=== PATIENT | male | born 1945 | race African-American/Black ===

== ENCOUNTER 2019-08-17 15:06 | Emergency (ER) | payer MEDICARE, OTHER ==
[2019-08-17 15:11] VITALS: BP 163/81
--- NOTE | 2019-08-17 15:15 | ER Document Report ---
ED Medical Screen (RME) - General Chief Complaint: Groin Pain Stated Complaint: ABDOMINAL PAIN Time Seen by Provider: 08/17/19 15:12 Mode of Arrival: Ambulatory Information source: Patient Notes: 74-year-old male presents to ED for groin pain and swelling on the right side. He states he had about a month ago went to an urgent care and they did a scan is that they could not find anything. He states it is come back again and is now larger. He states the pain started Friday this time. He said it does not affect his urination he is not having any pain or blood in his urine. He states he he is having more frequent bowel movement since this is become more swollen. He says he has not been lifting anything since he has noticed this. History of diabetes high blood pressure cardiac stent he states he normally does have frequent urination. He states he does not smoke drink or use any drugs. I have greeted and performed a rapid initial assessment of this patient. A comprehensive ED assessment and evaluation of the patient, analysis of test results and completion of medical decision making process will be conducted by an additional ED providers. Physical Exam - Vital signs Vitals: Temp Pulse Resp BP Pulse Ox 97.6 F 79 17 163/81 H 100 08/17/19 15:10 08/17/19 15:10 08/17/19 15:10 08/17/19 15:10 08/17/19 15:10 Course - Vital Signs Vital signs: Temp Pulse Resp BP Pulse Ox 97.6 F 79 17 163/81 H 100 08/17/19 15:10 08/17/19 15:10 08/17/19 15:10 08/17/19 15:10 08/17/19 15:10
[2019-08-17 15:42] LABS: ABSOLUTE EOSINOPHILS # (AUTO) 0.1 10^3/uL (0.0-0.6); ABSOLUTE LYMPHOCYTES (AUTO) 0.9 10^3/uL (0.5-4.7); ABSOLUTE MONOCYTES (AUTO) 0.6 10^3/uL (0.1-1.4); ABSOLUTE NEUT (AUTO) 3.8 10^3/uL (1.7-8.2); BASOPHILS % (AUTO) 0.7 % (0-2); HEMATOCRIT 38.9 % (37.9-51.0); HEMOGLOBIN 13.2 g/dL (13.5-17.0); LYMPHOCYTES % (AUTO) 16.4 % (13-45); MEAN CORPUSCULAR HEMOGLOBIN 31.4 pg (27.0-33.4); MEAN CORPUSCULAR VOLUME 92 fl (80-97); MONOCYTES % (AUTO) 11.2 % (3-13); PLATELET COUNT 200 10^3/uL (150-450); RED BLOOD COUNT 4.21 10^6/uL (4.35-5.55); RED CELL DISTRIBUTION WIDTH 11.9 % (11.5-14.0); SEGMENTED NEUTROPHILS % (AUTO) 69.7 % (42-78); TOTAL CELLS COUNTED % (AUTO) 100 %; WHITE BLOOD COUNT 5.4 10^3/uL (4.0-10.5)
[2019-08-17 15:45] LABS: APPEARANCE,URINE CLEAR; BILIRUBIN,URINE NEGATIVE (NEGATIVE); COLOR,URINE YELLOW; GLUCOSE, URINE >=500 mg/dL (NEGATIVE); KETONES,URINE NEGATIVE (NEGATIVE); PROTEIN,URINE NEGATIVE (NEGATIVE); URINE SPECIFIC GRAVITY 1.018; UROBILINOGEN,URINE NEGATIVE mg/dL (<2.0)
[2019-08-17 16:03] LABS: ALBUMIN 4.3 g/dL (3.5-5.0); ALKALINE PHOSPHATASE 88 U/L (38-126); ANION GAP 11 (5-19); ASPARTATE AMINO TRANSFERASE 26 U/L (17-59); BILIRUBIN,DIRECT 0.1 mg/dL (0.0-0.4); BILIRUBIN,TOTAL 0.6 mg/dL (0.2-1.3); BLOOD UREA NITROGEN 12 mg/dL (7-20); CALCIUM 10.1 mg/dL (8.4-10.2); CARBON DIOXIDE 31 mmol/L (22-30); CHLORIDE 97 mmol/L (98-107); GLUCOSE 300 mg/dL (75-110); POTASSIUM 4.2 mmol/L (3.6-5.0); TOTAL PROTEIN 7.6 g/dL (6.3-8.2)
--- NOTE | 2019-08-17 17:01 | ER Document Report ---
ED General - General Chief Complaint: Groin Pain Stated Complaint: ABDOMINAL PAIN Time Seen by Provider: 08/17/19 15:12 Primary Care Provider: RUMA JARRETT MD [Primary Care Provider] - Follow up as needed Mode of Arrival: Ambulatory Notes: 74-year-old male presents with right testicular pain/swelling since Friday. Patient states it is intermittent, worse with standing, nothing relieves it. Patient states he had similar episode approximately 1 month ago and had a CT scan at urgent care which did not show anything. Patient denies dysuria, hematuria, changes with frequency in urine. States he has frequency with urination for the past 5 years and has seen urologist multiple times for same without a clear answer. Denies fevers, chills, nausea, vomiting, diarrhea, constipation, abdominal pain, chest pain, dyspnea, or dizziness. Patient denies history of CHF. TRAVEL OUTSIDE OF THE [place] IN LAST 30 DAYS: No - Related Data Allergies/Adverse Reactions: No Known Allergies Allergy (Verified 08/17/19 15:13) Past Medical History - General Information source: Patient - Social History Smoking Status: Never Smoker Chew tobacco use (# tins/day): No Frequency of alcohol use: None Drug Abuse: None Family History: Reviewed & Not Pertinent Patient has suicidal ideation: No Patient has homicidal ideation: No - Past Medical History Cardiac Medical History: Reports: Hx Hypertension Pulmonary Medical History: Reports: Hx Asthma Endocrine Medical History: Reports: Hx Diabetes Mellitus Type 2 Past Surgical History: Reports: Hx Cardiac Catheterization - Stent, Hx Testicular Surgery Review of Systems - Review of Systems Notes: Constitutional: Negative for fever. HENT: Negative for sore throat. Eyes: Negative for visual changes. Cardiovascular: Negative for chest pain. Respiratory: Negative for shortness of breath. Gastrointestinal: Negative for abdominal pain, vomiting or diarrhea. Genitourinary: Positive for right testicular pain/swelling. Negative for dysuria. Musculoskeletal: Negative for back pain. Skin: Negative for rash. Neurological: Negative for headaches, weakness or numbness. 10 point ROS negative except as marked above and in HPI. Physical Exam - Vital signs Vitals: Temp Pulse Resp BP Pulse Ox 97.6 F 79 17 163/81 H 100 08/17/19 15:10 08/17/19 15:10 08/17/19 15:10 08/17/19 15:10 08/17/19 15:10 - Notes Notes: GENERAL: Well-appearing, well-nourished and in no acute distress. HEAD: Atraumatic, normocephalic. EYES: Pupils equal round and reactive to light, extraocular movements intact, sclera anicteric, conjunctiva are normal. ENT: TMs normal, nares patent, oropharynx clear without exudates. Moist mucous membranes. NECK: Normal range of motion, supple without lymphadenopathy or JVD. LUNGS: Breath sounds clear to auscultation bilaterally and equal. No wheezes rales or rhonchi. HEART: Regular rate and rhythm without murmurs, rubs or gallops. ABDOMEN: Soft, nontender, normoactive bowel sounds. No guarding, no rebound. No masses appreciated. : Testicles do not appear swollen, nontender, no erythema, sales utility representative Alecsis RN EXTREMITIES: Normal range of motion, no pitting or edema. No clubbing or cyanosis. Distal pedal pulses 2+ bilaterally. Cap refill < 2 sec. No right thigh hematoma or erythema. No overt tenderness of right thigh. NEUROLOGICAL: Cranial nerves II through XII grossly intact. Normal speech, normal gait. PSYCH: Normal mood, normal affect. SKIN: Warm, Dry, normal turgor, no rashes or lesions noted. Course - Re-evaluation Re-evalutation: 08/17/19 74-year-old male presents with right testicular pain swelling for 3 days. Denies abdomen, nausea, vomiting. Nontoxic in appearance, well- appearing. Abdomen soft nontender. Testicles do not appear swollen, erythematous. Testicles nontender. Patient is tolerating p.o. without difficulties and is nontoxic-appearing. Low suspicion/risk for acute appendicitis, bowel obstruction, acute cholecystitis, perforated diverticulitis, incarcerated hernia, pancreatitis, perforated ulcer, peritonitis, sepsis, testicular torsion, or other systemic emergent condition at this time. US is negative, however there is what appears to be a femoral stent at the place where pt points to pain. This was placed [address] Gian Mosqueda in [place]. Pt told to follow up with this doctor.. Pt's labwork also shows blood glucose of 300 without acidosis or anion gap. Discussed this with pt and importance to follow up with PCP and check blood sugar regularly. Patient is aware that his condition can change from initial presentation and he needs to monitor symptoms closely and seek medical attention if any acute changes. Conservative measures otherwise for symptoms. Recheck with PCM and surgeon in 2-3 days. Return to the ED with any worsening/concerning symptoms otherwise as reviewed in discharge. Patient is in agreement. - Vital Signs Vital signs: Temp Pulse Resp BP Pulse Ox 98.1 F 79 17 163/81 H 100 08/17/19 18:06 08/17/19 15:10 08/17/19 15:10 08/17/19 15:10 08/17/19 15:10 - Laboratory Result Diagrams: 08/17/19 15:25 08/17/19 15:25 Laboratory results interpreted by me: 08/17/19 08/17/19 08/17/19 15:25 15:25 15:25 RBC 4.21 L Hgb 13.2 L VBG pCO2 VBG HCO3 Chloride 97 L Carbon Dioxide 31 H Glucose 300 H Urine Glucose (UA) >=500 H 08/17/19 17:53 RBC Hgb VBG pCO2 66.1 H* VBG HCO3 35.4 H Chloride Carbon Dioxide Glucose Urine Glucose (UA) Discharge - Discharge Clinical Impression: Right thigh pain, Hyperglycemia Condition: Stable Disposition: HOME, SELF-CARE Instructions: Hyperglycemia ([facility]) Additional Instructions: Your testicular ultrasound was normal however where you pointed to pain was where a stent was in. Please follow up with your surgeon who placed this stent, Dr. Gian Bailon, in 1 week. Your blood glucose was 300 today. Please follow up with PCP listed in 2-3 days. Return to ER for any worsening symptoms, including worsening pain, swelling, fever, redness to area, chest pain, cold foot, or any other symptoms that are concerning to you. Referrals: RUMA JARRETT MD [Primary Care Provider] - Follow up as needed
[2019-08-17 18:03] LABS: VENOUS BLOOD BASE EXCESS 7.5 mmol/L; VENOUS BLOOD HCO3 35.4 mmol/L (20-32); VENOUS BLOOD PH 7.35 (7.30-7.42)
--- NOTE | 2019-08-17 18:09 | RADIOLOGY REPORT (SQ) ---
EXAM DESCRIPTION: U/S SCROTUM W/DOPPLER COMPLETED DATE/TIME: 08/17/2019 5:50 pm REASON FOR STUDY: Pain and swelling to the right groin COMPARISON: None. TECHNIQUE: Static and realtime lerner scale imaging of the scrotum and testes. Selected color Doppler and spectral images recorded to document blood flow. LIMITATIONS: None. FINDINGS: RIGHT: TESTICLE: Normal size. Normal echotexture. Normal blood flow. No mass. EPIDIDYMIS: Normal. HYDROCELE OR VARICOCELE: No. HERNIA OR EXTRA-TESTICULAR MASS: No. OTHER: Area of pain corresponds to vascular stent within an unlabeled vessel. LEFT: TESTICLE: Normal size. Normal echotexture. Normal blood flow. No mass. EPIDIDYMIS: 7 mm epididymal head cyst. HYDROCELE OR VARICOCELE: No. HERNIA OR EXTRA-TESTICULAR MASS: No. OTHER: No other significant finding. IMPRESSION: No acute scrotal findings. A vascular stent within a non labeled vessel, possibly the right femoral artery, corresponds to the p atient's area of pain at the right groin. TECHNICAL DOCUMENTATION: JOB ID: [id number] [employer]- All Rights Reserved Reading location - IP/workstation name: [email or web address]
[2019-08-17 18:53] LABS: VENOUS BLOOD PCO2 66.1 mmHg (35-63)
== END 2019-08-17 20:00 | disposition home or self-care (01) ==
LOC: ER 15:06
DX: M79.651 Pain in right thigh (principal); E11.65 Type 2 diabetes mellitus with hyperglycemia; R10.30 Lower abdominal pain, unspecified; N50.811 Right testicular pain; N50.89 Other specified disorders of the male genital organs; R35.0 Frequency of micturition; I10 Essential (primary) hypertension; J45.909 Unspecified asthma, uncomplicated
CPT/HCPCS: 36415; 76870; 80053; 81001; 82803; 85025; 93976; 99284